=== PATIENT | female | born 1960 | race Caucasian/White ===

== ENCOUNTER → 2016-06-14 | Outpatient (CLI) | payer OTHER | LOC: FIMAGING 09:29 | DX: Z12.31 Encounter for screening mammogram for malignant neoplasm of breast (principal); Z80.3 Family history of malignant neoplasm of breast | CPT/HCPCS: G0202 ==

== ENCOUNTER → 2017-07-05 | Outpatient (CLI) | payer OTHER | LOC: FIMAGING 12:02 | DX: Z12.31 Encounter for screening mammogram for malignant neoplasm of breast (principal); Z80.3 Family history of malignant neoplasm of breast ==

== ENCOUNTER → 2018-01-14 | Outpatient (CLI) | payer OTHER | LOC: FIMAGING 17:45 | PROVIDERS: ATTEND Orthopaedic Surgery Sports Medicine | DX: M23.321 Other meniscus derangements, posterior horn of medial meniscus, right knee (principal); M23.331 Other meniscus derangements, other medial meniscus, right knee; M23.8X1 Other internal derangements of right knee; M25.461 Effusion, right knee ==

== ENCOUNTER 2018-01-18 10:26 | Emergency (ER) | payer OTHER ==
[2018-01-18] MEDS ORDERED: LET GEL TOPICAL 1 EA SYR TP ONE (10:39)
[2018-01-18] MEDS ORDERED: IBUPROFEN 200 MG TAB PO ONE (10:39)
[2018-01-18] MEDS ORDERED: LIDOCAINE 2% JELLY 5 ML TUBE ONE (10:45)
[2018-01-18] MEDS ORDERED: TDAP ADULT 0.5 ML INJ (BOOSTRIX) IM ONE (10:45)
[2018-01-18] MEDS ORDERED: LIDOCAINE 2% JELLY 5 ML TUBE TP ONE (10:47)
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
[2018-01-18] MEDS ORDERED: SKIN ADHESIVE (DERMABOND) 1 EACH TP ONE (11:32)
[2018-01-18 12:12] VITALS: BP 119/75
== END 2018-01-18 11:55 | disposition home or self-care (01) ==
LOC: CED 10:26
PROC: 0HQ1XZZ Repair Face Skin, External Approach (ICD-10-PCS; principal; 2018-01-18)
DX: S01.412A Laceration without foreign body of left cheek and temporomandibular area, initial encounter (principal); S01.81XA Laceration without foreign body of other part of head, initial encounter; S70.312A Abrasion, left thigh, initial encounter; V18.4XXA Pedal cycle driver injured in noncollision transport accident in traffic accident, initial encounter; Y93.55 Activity, bike riding; Y99.8 Other external cause status; Y92.410 Unspecified street and highway as the place of occurrence of the external cause

== ENCOUNTER → 2018-07-31 | Outpatient (CLI) | payer OTHER | LOC: FIMAGING 15:31 | PROVIDERS: ATTEND Internal Medicine | DX: Z12.31 Encounter for screening mammogram for malignant neoplasm of breast (principal) ==